=== PATIENT | female | born 1965 | race Caucasian/White ===

== ENCOUNTER 2022-04-15 23:24 | Emergency (ER) | payer BC, SELFPAY ==
--- NOTE | ~2022-04-15 | XR_ITS ---
XR ankle LT min 3V 04/15/2022 23:59 Indication: Left ankle pain after fall Procedure: 3 views left ankle Comparison: No prior studies for comparison. Findings: There is mildly displaced medial malleolar fracture with lateral displacement of the talus with respect to the tibia. There is a minimally displaced oblique distal fibular metadiaphyseal fract ure. There is a displaced posterior malleolar fracture as well. Talar dome is unremarkable. There is mild soft tissue swelling. No foreign bodies. Impression: 1: Displaced trimalleolar fracture. Reviewed, dictated and finalized at location A. Impression: 1: Displaced trimalleolar fracture.
[2022-04-15 23:30] VITALS: BP 123/67; PULSE 86; RESP 19; TEMP 36.5; O2SAT 100
--- NOTE | 2022-04-15 23:53 | ED.LOWEXIN ---
HPI - Extremity Injury (Lower) General Chief Complaint: Extremity Injury, Lower Stated Complaint: left ankle pain Time Seen by Provider: 04/15/22 23:38 History of Present Illness HPI Narrative: Patient presents with left ankle pain pain for she was walking up a hill tripped and had an inversion injury to her left ankle. She reports has not been able to put any weight on it due to severe pain. Her pain is sharp, constant, radiates up her leg worse with trying to move her ankle or foot is primarily over the medial aspect of her leg. She denied striking her head or any loss of conscious denies any focal numbness or weakness denies use of any blood thinners. Related Data Home Medications Medication Instructions Recorded Confirmed raloxifene 60 mg tablet 60 mg PO DAILY 04/29/20 04/13/22 Allergies Allergy/AdvReac Type Severity Reaction Status Date / Time No Known Allergies Allergy Verified 04/15/22 23:32 Review of Systems Review of Systems: CONSTITUTIONAL: Denies fever, chills, or sweats. EYES: Denies visual changes, redness, or discharge. ENT: Denies rhinorrhea, congestion, sore throat, or otalgia. CARDIOVASCULAR: Denies chest pain, palpitations, or edema. RESPIRATORY: Denies cough or dyspnea. GASTROINTESTINAL: Denies abdominal pain, nausea, vomiting, or diarrhea. GENITOURINARY: Denies dysuria or hematuria. SKIN: Denies rash or itching. MUSCULOSKELETAL: Denies back pain, joint pain, or myalgia. NEUROLOGIC: Denies headache, numbness, dizziness, or weakness. PSYCHIATRIC: Denies anxiety or depression. All systems reviewed & are unremarkable except as noted in HPI and below PMFSH Past Medical History Medical History Dysplasia of hip Surgical History Surgical History H/O: hysterectomy (~2011) S/P endometrial ablation (~2010) Family History Family History Grandparent Depression Family history of malignant neoplasm of breast Mother Family history of breast disorder Family history of malignant neoplasm of breast in first degree relative Other Family history of cardiovascular disease Social History Social History Smoking status: Never smoker Alcohol intake: never Exam Narrative: GENERAL: Well-appearing, well-nourished, and in no acute distress. HEAD: Normocephalic, atraumatic. EYES: PERRLA and EOMI. ENT: Nares clear, no rhinorrhea or epistaxis. Mucous membranes moist. NECK: Supple. No masses. No JVD EXTREMITIES: Edema and ecchymosis noted to the left ankle more prominent on the medial aspect there is diffuse tenderness ankle again more prominent on the medial malleolus. Sensation intact to the toes cap refill less than 2 seconds range of motion intact in the toes. There are no open or draining wounds on the left ankle SKIN: Warm, dry, no rash. NEURO: No focal deficits. Alert and oriented x3. PSYCH: Normal mood and affect. Course Reevaluation(s) Reevaluation #1: Case cussed with Dr. Cezar Chery on-call who will assist with outpatient follow-up. Results and plan reviewed with patient. Patient is comfortable outpatient plan. Splint placed in the ED distal extremity remained neurovascularly intact. Date: 04/16/22 Time: 00:44 Vital Signs Vital signs: Vital Signs Temperature 36.5 C 04/15/22 23:30 Pulse Rate 86 04/15/22 23:30 Respiratory Rate 19 04/15/22 23:30 Blood Pressure 123/67 04/15/22 23:30 Pulse Oximetry 100 04/15/22 23:30 Oxygen Delivery Room Air 04/15/22 23:30 Temperature 36.5 C 04/15/22 23:30 Pulse Rate 87 04/16/22 01:33 Respiratory Rate 16 04/16/22 01:33 Blood Pressure 112/71 04/16/22 01:33 Pulse Oximetry 98 04/16/22 01:33 Oxygen Delivery Room Air 04/15/22 23:30 MDM - Extremity Injury (Lower) MDM Narrative Medical decis
[2022-04-16 00:02] VITALS: BP 104/65; PULSE 89; RESP 18; O2SAT 94
[2022-04-16] MEDS: oxyCODONE/ACETAMINOPHEN (*CRX) 5-325 MG TABLET 1 TABLET PO (00:19)
[2022-04-16 01:33] VITALS: BP 112/71; PULSE 87; RESP 16; O2SAT 98
== END 2022-04-16 01:34 | disposition home or self-care (01) ==
LOC: ANHED 04-16 00:49
PROVIDERS: Emergency Provider Emergency Medicine; PCP Family Medicine
DX: S82.892A Other fracture of left lower leg, initial encounter for closed fracture (principal); W01.0XXA Fall on same level from slipping, tripping and stumbling without subsequent striking against object, initial encounter
CPT/HCPCS: 73610; 99283; A9270

== ENCOUNTER 2022-07-18 13:21 | Outpatient (CLI) | payer BC, SELFPAY ==
--- NOTE | ~2022-07-18 | US_ITS ---
EXAMINATION: US venous doppler [facility] DATE: 07/18/2022 14:17 INDICATION: Left lower limb pain and swelling TECHNIQUE: Hearn scale images without and with compression and Doppler images of the left lower extrem ity veins were obtained. COMPARISON: None FINDINGS: The left common femoral vein, profunda femoral vein, femoral vein, popliteal vein, peroneal trunk, posterior tibial veins, and greater saphenous vein are patent. IMPRESSION: 1. Patent left lower extremity veins. No evidence of deep venous thrombosis. Reviewed, dictated and finalized at location A.
== END 2022-07-18 13:22 | disposition home or self-care (01) ==
PROVIDERS: PCP Family Medicine; Visit Provider Family Medicine
DX: M79.89 Other specified soft tissue disorders (principal); Z98.890 Other specified postprocedural states
CPT/HCPCS: 93971

== ENCOUNTER 2024-04-06 00:56 | Day surgery (SDC) | payer BC, SELFPAY ==
[2024-03-20 11:39] VITALS: BMI 24.7
[2024-04-06 11:28] VITALS: BP 103/86; PULSE 85; RESP 18; TEMP 36.3; O2SAT 98; BMI 25.4
--- NOTE | 2024-04-06 11:42 | WPDANESEPPF ---
Anes - Initial Pre Proc Eval Procedure: Operation Date: 04/06/24 12:30 Proposed Procedures p Screening Colonoscopy - Butch Woodward MD Date/Time: 04/06/24 11:42 Surgeon: Butch Woodward MD Pre Op Diagnosis: neoplasm screening Patient Data Age: 59 Gender: F Height: 1.57 m Weight: 63.2 kg Last Vital Signs Temp 97.4 F L 04/06/24 11:28 Pulse 85 04/06/24 11:28 Resp 18 04/06/24 11:28 BP 103/86 04/06/24 11:28 Pulse Ox 98 04/06/24 11:28 O2 Del Method Room Air 04/06/24 11:28 Allergies Allergy/AdvReac Type Severity Reaction Status Date / Time No Known Allergies Allergy Verified 04/06/24 11:35 Home Medications Medication Instructions Recorded Confirmed Type abaloparatide (Tymlos) 80 mcg subcut DAILY 09/18/23 04/06/24 History fluoxetine 20 mg capsule (Prozac) 20 mg PO DAILY #90 caps 10/31/23 04/06/24 Rx Patient hx anesthesia problems: none Family hx anesthesia problems: none Results Review: All pre-operative results and documents have been reviewed as part of the pre-operative evaluation. [facility] Past Medical History Medical History Dysplasia of hip Surgical History Surgical History H/O: hysterectomy (~2011) S/P endometrial ablation (~2010) Family History Family History Grandparent Depression Family history of malignant neoplasm of breast Mother Family history of breast disorder Family history of malignant neoplasm of breast in first degree relative Other Family history of cardiovascular disease Social History Social History Smoking status: Never smoker Alcohol intake: current Drinks per week: 2 Substance use type: does not use Lack of Transportation: No Lack of Food: Never True Current Housing: I Have Housing Concerned About Future Housing: No Difficulty Paying Gas/Electric Bills: No Difficulty Paying for Meds: No Currently Unemployed: No Education: High School Diploma/GED Difficulty w/ Childcare or Family Care: No Living arrangements: alone Anes - Eval Final PreProcedure Day of Procedure 04/06/24 11:42 Patient weight: normal Heart: regular rate and rhythm Lungs: clear to auscultation Airway: Mallampati scale class II Neurological: alert and oriented Last oral intake: >/= 8 hours ASA classification: II Emergent: no Anesthetic plan: proceed Anesthesia type and monitoring: general GIVS and standard monitoring Results Review: All pre-operative results and documents have been reviewed as part of the pre-operative evaluation. Informed Consent: The patient's anesthetic plan and its attendant risks and benefits were discussed with the patient/family/POA. Questions were solicited and answers provided to the satisfaction of the patient/family/POA.
[2024-04-06] MEDS: LACTATED RINGERS 1,000 ML 150 ML IV CONT (11:44)
--- NOTE | 2024-04-06 12:47 | PM.HPGS ---
History of Present Illness History of Present Illness Consent: Risks, benefits, and alternatives have been discussed and questions answered. Patient agrees to proceed with procedure. Chief complaint: neoplasm screening Narrative: Serena Quintero is a 59 year old female here for first screening colonoscopy Review of Systems Review of Systems: All systems reviewed & are unremarkable except as noted in HPI and below PMFSH Past Medical History Medical History Dysplasia of hip Surgical History Surgical History H/O: hysterectomy (~2011) S/P endometrial ablation (~2010) Family History Family History Grandparent Depression Family history of malignant neoplasm of breast Mother Family history of breast disorder Family history of malignant neoplasm of breast in first degree relative Other Family history of cardiovascular disease Social History Social History Smoking status: Never smoker Alcohol intake: current Drinks per week: 2 Substance use type: does not use Lack of Transportation: No Lack of Food: Never True Current Housing: I Have Housing Concerned About Future Housing: No Difficulty Paying Gas/Electric Bills: No Difficulty Paying for Meds: No Currently Unemployed: No Education: High School Diploma/GED Difficulty w/ Childcare or Family Care: No Living arrangements: alone Meds Home Medications and Allergies Home Medications Medication Instructions Recorded Confirmed Type abaloparatide (Tymlos) 80 mcg subcut DAILY 09/18/23 04/06/24 History fluoxetine 20 mg capsule (Prozac) 20 mg PO DAILY #90 caps 10/31/23 04/06/24 Rx Allergies Allergy/AdvReac Type Severity Reaction Status Date / Time No Known Allergies Allergy Verified 04/06/24 11:35 Vital Signs Vital Signs - 24 hr 04/06/24 11:28 Temperature 97.4 F L Pulse Rate 85 Respiratory Rate 18 Blood Pressure 103/86 Pulse Oximetry 98 Oxygen Delivery Room Air Exam Const: General: comfortable and no acute distress HENMT: Face/Nose/Sinus: Normal nares present Eyes: General: appearance normal, both eyes and all related structures Neck: Neck: no JVD Resp: Auscultation: clear to auscultation bilaterally Cardio: Rate: regular rate Rhythm: regular rhythm GI: Inspection: non-distended GI Palp: Yes Soft to palpation Skin: General skin exam: normal color Neuro: General: gait normal Speech: normal speech Extrem: General: normal to inspection Psych: Mental Status: mental status grossly normal Assessment and Plan Assessment and plan (1) Colon cancer screening: Code(s): Z12.11 - Encounter for screening for malignant neoplasm of colon Status: Acute Assessment and Plan: colonoscopy
[2024-04-06 13:06] VITALS: BP 99/56; PULSE 72; RESP 23; O2SAT 97
[2024-04-06 13:16] VITALS: BP 98/63; PULSE 67; RESP 20; O2SAT 97
[2024-04-06 13:26] VITALS: BP 109/69; PULSE 60; RESP 18; O2SAT 97
== END 2024-04-06 13:39 | disposition home or self-care (01) ==
PROVIDERS: PCP Family Medicine; Visit Provider Internal Medicine Gastroenterology
PROC: 0DJD8ZZ Inspection of Lower Intestinal Tract, Via Natural or Artificial Opening Endoscopic (ICD-10-PCS; CPT 45378; principal; 2024-04-06 12:30)
DX: Z12.11 Encounter for screening for malignant neoplasm of colon (principal); K57.30 Diverticulosis of large intestine without perforation or abscess without bleeding; Z98.890 Other specified postprocedural states; Z80.3 Family history of malignant neoplasm of breast; Z82.49 Family history of ischemic heart disease and other diseases of the circulatory system
CPT/HCPCS: 45378; J2704; J7120